=== PATIENT | female | born 1935 | race Caucasian/White ===

== ENCOUNTER 2016-11-15 17:42 | Emergency (ER) | payer MEDICARE, OTHER ==
--- NOTE | ~2016-11-15 | ER ---
PATIENT'S NAME: BARBARA CLIVE [facility] AGE: 81 Y [address] ROOM: [place] [address] LOCATION: [facility] ADMIT DATE: 11/15/2016 ER/Outpatient Report DISCHARGE DATE: 11/15/2016 FAMILY PHYSICIAN: Mela Marquez MD ATTENDING PHYSICIAN: Brenda Anderson Time of Arrival: 1742 hours. Time of Evaluation: 1810 hours. CHIEF COMPLAINT: Injuries from fall. HISTORY OF PRESENT ILLNESS: An 81-year-old female presents to the ER, who states that she suffered a ground level fall. The patient states she just tripped and fell, and she struck the right side of her face with her glasses on, injured her right shoulder, and also is having some left lower back pain. The patient states that she was not knocked out. She did bend her glasses when she fell. She states that this all happened around noon today. The patient states that she has chronic neck and back pain, so she is not really knowing if her current pain is from the fall today. She states she had a recent right shoulder repair as well and wanted to make sure that that all looks fine. She also had a left carpal tunnel repair. She states that that hand does not hurt her at all, and she did have some leftover hydrocodone from that surgery, so she did take 2 of those around 2 o'clock this afternoon. ALLERGIES: NO KNOWN ALLERGIES. MEDICATIONS: Please see medication list on nurse's notes. PAST MEDICAL HISTORY: Shoulder surgery; left wrist surgery; total knees, bilateral. SOCIAL HISTORY: Denies smoking, drug, or alcohol use. REVIEW OF SYSTEMS: A 10-point review of systems was completed and was negative with the exception of those discussed in the HPI. PHYSICAL EXAMINATION: VITAL SIGNS: Pulse 82, respirations 16, weight 65.3 kg taken, temperature is 96.5 degrees tympanically, blood pressure is 184/85, saturations 98% on room PATIENT'S NAME: BARBARA CLIVE [facility] AGE: 81 Y [address] ROOM: [place], [place] [address] LOCATION: [facility] ADMIT DATE: 11/15/2016 ER/Outpatient Report DISCHARGE DATE: 11/15/2016 FAMILY PHYSICIAN: Mela Marquez MD ATTENDING PHYSICIAN: Brenda Anderson. Adams Coma Score is 15. GENERAL: Alert, calm, well-developed female, in no acute distress. HEENT: Head: Normocephalic. Eyes: Pupils are equal and reactive to light. Ears: TMs display good light reflexes bilaterally. Auditory canals are clear. Does display moist mucous membranes. LUNGS: Clear to auscultation bilaterally. No wheezes or crackles. Normal respiratory effort. HEART: Regular rate and rhythm. No lifts, thrills, or murmurs. ABDOMEN: Soft, it is nontender. She has good bowel sounds throughout. No masses are palpated. EXTREMITIES: She does allow me to do full range of motion with her right shoulder. The patient does have some mild tenderness with palpation over the posterior aspect of her right shoulder. She has no tenderness over her lower back with palpation. No tenderness, but she does have some slight mild tenderness over the paraspinous muscles. She has full range of motion in all other limbs. SKIN: She has a hematoma noted to the right side of her forehead, and there is a small abrasion to the center of that as well. LABORATORY DATA AND X-RAYS: None were done. X-rays of her right shoulder show no obvious fracture. CT scan of her head and lumbar spine were done and were unremarkable and reported by Radiology. IMPRESSION: Head, right shoulder, left lower back pain from a ground-level fall. ASSESSMENT AND PLAN: We did give the patient reassurance. I will send them home with a few more hydrocodone to use as needed for severe pain. Otherwise, she may take Tylenol or ibuprofen for her pain. She needs to ice the sore areas and should follow up with her primary care physician if needed. The patient understands and agrees with care. CLOTILDE HALE PA-C FOR MD ADIA DELATORRE/juan diego /[id number] d: t: 11/21/16 1234, OUTPATIENT REPORT
[~2016-11-15 17:42] MED LIST: ADVIL200 MG PO; ALLEGRA60 MG PO; ALLOPURINOL300 MG PO; ASPIRIN (CHILDR81 MG PO; AZITHROMYCIN500 MG PO; CALCIUM500 MG PO; CPAP; CPAP INH; DELTASONE10 MG PO; DILAUDID 2MG(HYD2 MG PO; FISH OIL1000 MG PO; MODAFINIL200 MG PO; PRILOSEC40 MG PO; PROAIR RESPICL90 MCG INH; STOOL SOFTENER100 MG PO; TOPROL XL 5050 MG PO; TRIAMTERENE-HC1 EACH PO; ULTRAM50 MG PO; VALIUM2 MG PO; VALIUM5 MG PO; VITAMIN D1000 UNIT PO
== END 2016-11-15 20:05 | disposition disaster alternative care site (69) ==
LOC: GACC 17:42
DX: S00.83XA Contusion of other part of head, initial encounter (principal); R51 Headache; M25.511 Pain in right shoulder; M54.5 Low back pain; Z98.890 Other specified postprocedural states; W18.09XA Striking against other object with subsequent fall, initial encounter

== ENCOUNTER → 2017-04-20 | Outpatient (CLI) | payer MEDICARE, OTHER | END | disposition disaster alternative care site (69) | LOC: GBCOE 13:52 | DX: Z13.820 Encounter for screening for osteoporosis (principal); Z78.0 Asymptomatic menopausal state ==